=== PATIENT | female | born 1945 | race Caucasian/White ===

== ENCOUNTER 2020-10-17 07:13 | Day surgery (SDC) | payer MEDICARE, OTHER ==
[2020-10-17] MEDS ORDERED: Lidocaine 1% PF 2 ML SDV INJECT ONE (07:14)
[2020-10-17] MEDS ORDERED: Propofol 200 MG/20 ML SDV IV ONE (07:14)
[2020-10-17] MEDS ORDERED: Sodium Chloride 0.9% 10 ML Syringe FLUSH PRN (07:15)
[2020-10-17] MEDS ORDERED: Lactated Ringers 1,000 ML IV SCH (07:15)
--- NOTE | 2020-10-17 09:39 | PCM.OPNOTE ---
- General Post-Op/Procedure Note Date of Surgery/Procedure: 10/17/20 Operative Procedure(s): c scope wt cold forceps biopsy Findings: descending colon polyp (hyperplastic appearing) Pre Op Diagnosis: + cologuard Post-Op Diagnosis: descending colon polyp Anesthesia Technique: [facility] – [place] Primary Surgeon: Cole Hargrove Anesthesia Provider: Warren Delacruz Pathology: colon polyp Complications: None Condition: Good Free Text/Narrative:: see dictation #[id number]
[2020-10-17] MEDS ORDERED: Albuterol/Ipratropium 3.0-0.5 MG/3 ML Neb Soln NEB ONE (09:45)
--- NOTE | 2020-10-17 11:15 | OR ---
DATE OF OPERATION: 10/17/2020 SURGEON: Cole Hargrove MD PROCEDURE PERFORMED: Colonoscopy with cold forceps biopsy. PREOPERATIVE DIAGNOSIS: Positive Cologuard test. POSTOPERATIVE DIAGNOSIS: Descending colon polyp. INDICATIONS FOR PROCEDURE: This is a 75-year-old white female who recently underwent a Cologuard test which was noted to be positive. She was offered and accepted a colonoscopy. DESCRIPTION OF OPERATION: After an excellent IV sedation was administered, digital rectal exam was performed. No marked abnormality was noted. Flexible colonoscope was inserted and advanced without difficulty to the cecum. The prep was good. There were some areas of liquid stool that we were able to completely irrigate and get an excellent view of the mucosa. The following findings were noted. Ascending colon, unremarkable. Transverse colon, unremarkable. Descending colon; at the proximal descending colon, a small hyperplastic- appearing polyp, biopsied and submitted for pathologic examination. Remainder of the descending colon was unremarkable. The sigmoid was unremarkable. The rectum and anus were unremarkable. The colon was deflated and the scope was removed. Results will be sent to the patient via letter. /[id number] /MODL
== END 2020-10-17 11:10 | disposition home or self-care (01) ==
LOC: FB.SDS 07:13
PROVIDERS: ATTEND Surgery
DX: D12.4 Benign neoplasm of descending colon (principal); K21.9 Gastro-esophageal reflux disease without esophagitis; I10 Essential (primary) hypertension; E66.9 Obesity, unspecified; Z79.82 Long term (current) use of aspirin; Z90.49 Acquired absence of other specified parts of digestive tract; Z79.899 Other long term (current) drug therapy; Z91.048 Other nonmedicinal substance allergy status; Z98.890 Other specified postprocedural states; Z68.33 Body mass index [BMI] 33.0-33.9, adult
CPT/HCPCS: 00812; 45380; 88305; 94640; J2704; J7120; J7620-GY

== ENCOUNTER 2024-04-05 09:11 | Day surgery (SDC) | payer MEDICARE, OTHER ==
[2024-04-05] MEDS ORDERED: Propofol 200 MG/20 ML SDV IV ONE (09:12)
[2024-04-05] MEDS ORDERED: Lidocaine 2% 100 MG/5 ML Syringe IVPUSH ONE (09:12)
[2024-04-05] MEDS ORDERED: Sodium Chloride 0.9% 10 ML Syringe FLUSH PRN (09:15)
[2024-04-05] MEDS: Lactated Ringers 1,000 ML IV SCH (09:59)
[2024-04-05] MEDS: Simethicone Drops 40 MG/0.6 ML 30 ML Bottle ONE (10:56)
== END 2024-04-05 12:33 | disposition home or self-care (01) ==
LOC: FB.SDS 09:11
PROVIDERS: ATTEND Surgery
DX: K21.00 Gastro-esophageal reflux disease with esophagitis, without bleeding (principal); K62.5 Hemorrhage of anus and rectum; K57.30 Diverticulosis of large intestine without perforation or abscess without bleeding; D64.9 Anemia, unspecified; K59.09 Other constipation; K44.9 Diaphragmatic hernia without obstruction or gangrene; K31.7 Polyp of stomach and duodenum; I10 Essential (primary) hypertension; Z86.010 Personal history of colon polyps; Z79.899 Other long term (current) drug therapy; Z79.82 Long term (current) use of aspirin; Z87.891 Personal history of nicotine dependence
CPT/HCPCS: 00813; 43239; 45378; 88305; 99100; A9270; J2704; J7120